=== PATIENT | female | born 1980 | race Two or more races ===

== ENCOUNTER 2023-05-10 12:41 | Inpatient (IN) | payer OTHER ==
[~2023-05-10] VITALS: Ht 157.5 cm; Wt 70.8 kg
--- NOTE | 2023-05-10 13:44 | NUR ---
PTE ALERTA Y ORIENTADA X4 REFIERE TENER FATIGA, DOLOR DE GARGANTA, FIEBRE DESDE HACE 4 BRAR Y HOY REFIERE TENER MAREO EN ESTA MANANA.
--- NOTE | 2023-05-10 15:33 | NUR ---
SE LE ORIENTA A PTE SOBRE TRATAMIENTO E INSTRUCCIONES A SEGUIR, CLAUDIA REFIERE ENTENDER. SE LE COLECTA MUESTRAS LOUISE ORDEN MEDICA
--- NOTE | 2023-05-10 16:44 | NUR ---
SE LLAMA A BANCO DE TOY DE [facility] Y SE HABLA CON SOBRE SI PTE TIENE RECORD PREVIO, CLAUDIA REFIERE QUE PTE NO TIENE RECORD PREVICO. EN ADICIONAL SE REQUISAN 3 UNIDADES DE PRBC COMPLETAS. SE ORIENTA A PTE, SE COLECTA TUBOS PILOTOS Y TERCER TUBO
== END 2023-05-12 13:43 | disposition home or self-care (01) | DRG 812 ==
LOC: ER 12:41 → SEC-K 19:33 → MEDJ 19:33
PROVIDERS: General Practice; ADMIT Internal Medicine; ATTEND Internal Medicine
PROC: 30233N1 Transfusion of Nonautologous Red Blood Cells into Peripheral Vein, Percutaneous Approach (ICD-10-PCS; principal; 2023-05-10)
PROC: BW21ZZZ Computerized Tomography (CT Scan) of Abdomen and Pelvis (ICD-10-PCS; 2023-05-10)
DX: D64.9 Anemia, unspecified (principal); N92.1 Excessive and frequent menstruation with irregular cycle